=== PATIENT | female | born 1940 | race Caucasian/White ===

== ENCOUNTER 2016-06-10 11:33 | Inpatient (IN) | payer OTHER ==
[~2016-06-10] VITALS: Ht 165.1 cm; Wt 46.6 kg
[~2016-06-10 11:33] MED LIST: ALENDRONATE SOD70 MG PO; ALTACE10 MG PO; AMITRIPTYLINE H25 MG PO; APRESOLINE25 MG PO; ASPIR-LOW81 MG PO; ASPIRIN81 M1; ASPIRIN81 M1 PO; BENICAR40 MG PO; CALCIUM + D 601 EACH PO; CALCIUM 600 +1 EAC3 PO; CARVEDILOL25 MG PO; COREG25 M1 PO; COREG25 MG PO; CYMBALTA30 MG PO; ELAVIL25 MG; HYDROCHLOROTHIA25 MG PO; HYDROCODON-ACE1 EAC7 PO; KLOR-CON M1010 MEQ PO; KLOR-CON M2020 MEQ PO; LIPITOR80 MG PO; RAMIPRIL PO; RAMIPRIL10 MG PO; RYBIX ODT50 MG; TYLENOL325 M1 PO; [UNRECOGNIZED DRUG - OTHER] PO
[2016-06-10 12:35] LABS: EOSINOPHIL COUNT 0.1 K/uL (0-0.3); IMMATURE GRANULOCYTE (%) 0.3 % (0.0-0.7); LYMPHOCYTE COUNT 1.1 K/uL (1.0-2.8); MCH 28.9 PG (29.0-34.0); MCHC 31.6 G/DL (30.0-36.0); MCV 91.5 FL (83-99); MEAN PLAT.VOLUME 9.3 uM^3 (9.5-12.4); MONOCYTE COUNT 0.4 K/uL (0-0.8); NEUTROPHIL (%) 74.9 % (45-76); PLATELET COUNT 172 K/uL (156-360); RBC DIS.WIDTH-CV 13.4 % (11.8-14.6); RBC DIS.WIDTH-SD 45.5 % (39-53); RED BLOOD COUNT 4.92 M/uL (3.80-5.20); WHITE BLOOD COUNT 6.6 K/uL (4.1-10.2)
[2016-06-10 12:45] LABS: PTT 30.1 (25-32)
[2016-06-10 12:48] LABS: CHLORIDE 104 mEq/L (99-109); POTASSIUM 3.7 mEq/L (3.7-5.4); SODIUM 138 mEq/L (136-147)
[2016-06-10 12:49] LABS: MAGNESIUM 1.9 mg/dL (1.3-2.7)
[2016-06-10 12:50] LABS: GLUCOSE 88 mg/dL (70-99)
[2016-06-10 12:52] LABS: ANION GAP 10 MEQ/L (2-14)
[2016-06-10 12:54] LABS: GFR ESTIMATE (CALCULATED) > 59 mL/min/
[2016-06-10 12:55] LABS: UREA NITROGEN (BUN) 12 mg/dL (9-23)
[2016-06-10 12:59] LABS: TROP-I INTERPRETATION NEGATIVE; TROPONIN-I 0.04 ng/mL (0.0-0.30)
[2016-06-10] MEDS ORDERED: KLOR-CON 1010 ME1 PO (17:18)
[2016-06-10] MEDS ORDERED: LOW DOSE ASPIRI81 M1 PO (17:19)
[2016-06-10] MEDS ORDERED: ALTACE10 MG PO (17:20)
[2016-06-10] MEDS ORDERED: CARDIZEM CD,CA180 MG PO (17:28)
[2016-06-10 19:34] LABS: TROP-I INTERPRETATION NEGATIVE; TROPONIN-I 0.13 ng/mL (0.0-0.30)
[2016-06-10 19:36] VITALS: BP 109/72
[2016-06-11] VITALS (7 sets, daily range): BP systolic 90–179; BP diastolic 54–93
[2016-06-11 01:11] LABS: TROP-I INTERPRETATION POSITIVE; TROPONIN-I 2.45 ng/mL (0.0-0.30)
[2016-06-11 07:20] LABS: ANION GAP 9 MEQ/L (2-14); CHLORIDE 104 MEQ/L (99-109); GFR ESTIMATE (CALCULATED) > 59 mL/min/; GLUCOSE 95 mg/dL (70-99); POTASSIUM 3.7 MEQ/L (3.7-5.4); SAMPLE HEMOLYSIS CHECK 0; SAMPLE ICTERIC CHECK 0; SAMPLE LIPEMIA CHECK 0; SODIUM 139 MEQ/L (136-147)
[2016-06-11 07:23] LABS: UREA NITROGEN (BUN) 22 mg/dL (9-23)
[2016-06-11 07:48] LABS: TROP-I INTERPRETATION POSITIVE; TROPONIN-I 3.87 ng/mL (0.0-0.30)
[2016-06-11 13:40] LABS: TROPONIN-I 2.21 ng/mL (0.0-0.30)
[2016-06-11 13:41] LABS: TROP-I INTERPRETATION POSITIVE
[2016-06-12 05:50] LABS: EOSINOPHIL COUNT 0.2 K/uL (0-0.3); HEMATOCRIT 38.4 % (36.0-46.0); IMMATURE GRANULOCYTE (%) 0.4 % (0.0-0.7); LYMPHOCYTE COUNT 0.9 K/uL (1.0-2.8); MCH 28.8 PG (29.0-34.0); MCHC 31.8 G/DL (30.0-36.0); MCV 90.8 FL (83-99); MEAN PLAT.VOLUME 9.8 uM^3 (9.5-12.4); MONOCYTE (%) 8.4 % (3-12); MONOCYTE COUNT 0.7 K/uL (0-0.8); PLATELET COUNT 172 K/uL (156-360); RBC DIS.WIDTH-CV 13.6 % (11.8-14.6); RBC DIS.WIDTH-SD 45.1 % (39-53); RED BLOOD COUNT 4.23 M/uL (3.80-5.20); WHITE BLOOD COUNT 7.9 K/uL (4.1-10.2)
[2016-06-12 05:58] LABS: ANION GAP 11 MEQ/L (2-14); CHLORIDE 102 MEQ/L (99-109); GFR ESTIMATE (CALCULATED) > 59 mL/min/; GLUCOSE 88 mg/dL (70-99); POTASSIUM 3.9 MEQ/L (3.7-5.4); SAMPLE HEMOLYSIS CHECK 0; SAMPLE ICTERIC CHECK 0; SAMPLE LIPEMIA CHECK 0; SODIUM 136 MEQ/L (136-147); UREA NITROGEN (BUN) 26 mg/dL (9-23)
[2016-06-12 08:50] VITALS: BP 160/88
[2016-06-12 16:15] VITALS: BP 155/88
[2016-06-13 04:40] VITALS: BP 145/85
[2016-06-13 07:32] VITALS: BP 155/88
[2016-06-13 11:28] VITALS: BP 148/87
[2016-06-13 11:42] VITALS: BP 133/76
[2016-06-13 15:40] VITALS: BP 168/82
[2016-06-13 20:35] VITALS: BP 192/93
[2016-06-14 00:25] VITALS: BP 164/82
[2016-06-14 04:34] VITALS: BP 167/81
[2016-06-14 08:12] VITALS: BP 191/91
[2016-06-14 11:47] VITALS: BP 173/96
[2016-06-14] MEDS ORDERED: HYGROTON25 MG PO (14:07)
[2016-06-14] MEDS ORDERED: NAMENDA5 MG PO (14:07)
[2016-06-14 14:15] VITALS: BP 175/89
[2016-06-14 15:42] VITALS: BP 153/92
== END 2016-06-14 17:52 | disposition home or self-care (01) | DRG 281 ==
LOC: EME → EDBD 11:33 → EME 11:33 → 3EAST 14:50 → EDOF 14:50 → 4EAST 14:50 → 3EAST 06-11 15:26
PROVIDERS: Emergency Medicine; Hospitalist; Internal Medicine
DX: I42.0 Dilated cardiomyopathy (principal); I21.4 Non-ST elevation (NSTEMI) myocardial infarction; I50.20 Unspecified systolic (congestive) heart failure; I11.0 Hypertensive heart disease with heart failure; F02.81 Dementia in other diseases classified elsewhere, unspecified severity, with behavioral disturbance; G30.0 Alzheimer's disease with early onset; I25.10 Atherosclerotic heart disease of native coronary artery without angina pectoris; E78.2 Mixed hyperlipidemia; J44.9 Chronic obstructive pulmonary disease, unspecified; I87.2 Venous insufficiency (chronic) (peripheral); H91.93 Unspecified hearing loss, bilateral; Z95.810 Presence of automatic (implantable) cardiac defibrillator; F17.210 Nicotine dependence, cigarettes, uncomplicated; Z86.73 Personal history of transient ischemic attack (TIA), and cerebral infarction without residual deficits; Z79.82 Long term (current) use of aspirin; Z66 Do not resuscitate
CPT/HCPCS: 70450; 71010; 80048; 82607; 82746; 83735; 83880; 84443; 84484; 85025; 85610; 85730; 93005; 93306; 99281; 99285; J0360; J1650; J1940

== ENCOUNTER → 2016-09-20 | Day surgery (SDC) | payer OTHER ==
[~2016-09-20] VITALS: Ht 157.5 cm; Wt 44.5 kg
[~2016-09-20] MED LIST changes: +ATORVASTATIN CA80 MG PO; +CARDIZEM CD,CA180 MG PO; +HYGROTON25 MG PO; +KLOR-CON 1010 ME1 PO; +LOW DOSE ASPIRI81 M1 PO; +MEMANTINE HCL5 MG PO; +NAMENDA5 MG PO; +REMERON15 M2 PO
== END | disposition home or self-care (01) ==
LOC: CATH 12:11
DX: Z45.02 Encounter for adjustment and management of automatic implantable cardiac defibrillator (principal); I42.0 Dilated cardiomyopathy; I25.10 Atherosclerotic heart disease of native coronary artery without angina pectoris; I11.0 Hypertensive heart disease with heart failure; E78.5 Hyperlipidemia, unspecified; F03.90 Unspecified dementia, unspecified severity, without behavioral disturbance, psychotic disturbance, mood disturbance, and anxiety; I25.2 Old myocardial infarction; J45.909 Unspecified asthma, uncomplicated; I27.2 Other secondary pulmonary hypertension; F17.210 Nicotine dependence, cigarettes, uncomplicated; Z79.82 Long term (current) use of aspirin
CPT/HCPCS: C1882; J0360; J0690; J1200; J2250; J3010; S0020

== ENCOUNTER 2017-06-23 22:59 | Emergency (ER) | payer OTHER, MEDICARE ==
[~2017-06-23] VITALS: Ht 165.1 cm; Wt 47.0 kg
[2017-06-23 23:46] LABS: HEMATOCRIT 34.3 % (36.0-46.0); HEMOGLOBIN 11.4 G/DL (11.9-15.5); MCH 29.4 PG (29.0-34.0); MCHC 33.2 G/DL (30.0-36.0); MCV 88.4 FL (83-99); PLATELET COUNT 153 K/uL (156-360); RBC DIS.WIDTH-CV 14.8 % (11.8-14.6); RBC DIS.WIDTH-SD 48.2 % (39-53); RED BLOOD COUNT 3.88 M/uL (3.80-5.20); WHITE BLOOD COUNT 8.2 K/uL (4.1-10.2)
[2017-06-23 23:55] LABS: CHLORIDE 97 mEq/L (99-109); POTASSIUM 3.3 mEq/L (3.7-5.4); SODIUM 130 mEq/L (136-147)
[2017-06-23 23:56] LABS: GLUCOSE 97 mg/dL (70-99)
[2017-06-24] LABS: CREATININE 0.9 mg/dL (0.6-1.3); GFR ESTIMATE (CALCULATED) > 59 mL/min/
[2017-06-24 00:01] LABS: UREA NITROGEN (BUN) 15 mg/dL (9-23)
[2017-06-24] MEDS ORDERED: LEVAQUIN750 MG PO (03:36)
[2017-06-24 07:39] VITALS: BP 123/97
== END 2017-06-24 07:41 | disposition home or self-care (01) ==
LOC: EME → EDBD 22:59 → EME 06-24 07:41
PROVIDERS: Emergency Medicine
DX: J40 Bronchitis, not specified as acute or chronic (principal); R53.1 Weakness; F17.200 Nicotine dependence, unspecified, uncomplicated; J43.9 Emphysema, unspecified; F03.90 Unspecified dementia, unspecified severity, without behavioral disturbance, psychotic disturbance, mood disturbance, and anxiety; E78.5 Hyperlipidemia, unspecified; I11.0 Hypertensive heart disease with heart failure; I50.9 Heart failure, unspecified; F41.9 Anxiety disorder, unspecified; Z95.0 Presence of cardiac pacemaker; Z86.73 Personal history of transient ischemic attack (TIA), and cerebral infarction without residual deficits; F32.9 Major depressive disorder, single episode, unspecified; Z79.82 Long term (current) use of aspirin
CPT/HCPCS: 71045; 71275; 80048; 83605; 85027; 87040; 93005; 94640; 99281; 99285; J7030

== ENCOUNTER 2017-10-09 23:07 | Emergency (ER) | payer OTHER, MEDICARE ==
[~2017-10-09] VITALS: Ht 160 cm; Wt 68.0 kg
[~2017-10-09 23:07] MED LIST changes: +LEVAQUIN750 MG PO
[2017-10-09 23:54] LABS: BASOPHIL (%) 0.4 % (0-1); EOSINOPHIL (%) 4.3 % (0-5); EOSINOPHIL COUNT 0.5 K/uL (0-0.3); HEMATOCRIT 37.7 % (36.0-46.0); HEMOGLOBIN 11.7 G/DL (11.9-15.5); IMMATURE GRANULOCYTE (%) 0.4 % (0.0-0.7); LYMPHOCYTE (%) 12.9 % (15-42); LYMPHOCYTE COUNT 1.4 K/uL (1.0-2.8); MCH 25.4 PG (29.0-34.0); MCV 81.8 FL (83-99); MONOCYTE (%) 7.6 % (3-12); MONOCYTE COUNT 0.8 K/uL (0-0.8); NEUTROPHIL (%) 74.4 % (45-76); NEUTROPHIL COUNT 7.8 K/uL (1.8-6.4); PLATELET COUNT 226 K/uL (156-360); RBC DIS.WIDTH-CV 16.3 % (11.8-14.6); RBC DIS.WIDTH-SD 48.3 % (39-53); RED BLOOD COUNT 4.61 M/uL (3.80-5.20); WHITE BLOOD COUNT 10.5 K/uL (4.1-10.2)
[2017-10-10 00:07] LABS: CHLORIDE 108 mEq/L (99-109); POTASSIUM 4.1 mEq/L (3.7-5.4); SODIUM 141 mEq/L (136-147)
[2017-10-10 00:09] LABS: GLUCOSE 97 mg/dL (70-99)
[2017-10-10 00:13] LABS: CREATININE 1.1 mg/dL (0.6-1.3); GFR ESTIMATE (CALCULATED) 51 mL/min/
[2017-10-10 00:14] LABS: UREA NITROGEN (BUN) 21 mg/dL (9-23)
[2017-10-10 00:17] LABS: TROP-I INTERPRETATION NEGATIVE; TROPONIN-I 0.02 ng/mL (0.0-0.30)
[2017-10-10 09:39] LABS: APPEARANCE CLEAR ((CLEAR)); BILIRUBIN NEGATIVE; BLOOD NEGATIVE; COLOR YELLOW ((YELLOW)); GLUCOSE (STRIP) NEGATIVE; KETONES NEGATIVE; LEUKOCYTES NEGATIVE; NITRITE NEGATIVE; PROTEIN (STRIP) NEGATIVE; SPECIFIC GRAVITY 1.014 (1.000-1.030); UCUL ADDED? NO; UROBILINOGEN 0.2 MG/DL (0.2-1.0)
[2017-10-10 14:02] VITALS: BP 176/104
== END 2017-10-10 14:07 ==
LOC: EME → EDBD 23:07 → EME 10-10 14:07
PROVIDERS: Emergency Medicine
DX: F03.91 Unspecified dementia, unspecified severity, with behavioral disturbance (principal); I11.0 Hypertensive heart disease with heart failure; I50.9 Heart failure, unspecified; Z91.14 Patient's other noncompliance with medication regimen; R19.7 Diarrhea, unspecified; E78.5 Hyperlipidemia, unspecified; Z86.73 Personal history of transient ischemic attack (TIA), and cerebral infarction without residual deficits; Z95.810 Presence of automatic (implantable) cardiac defibrillator; Z79.82 Long term (current) use of aspirin; F17.200 Nicotine dependence, unspecified, uncomplicated
CPT/HCPCS: 70450; 71045; 80048; 81003; 84484; 85025; 90839; 93005; 99281; 99285; J2060